=== PATIENT | female | born 1990 | race Caucasian/White ===

== ENCOUNTER 2020-10-26 09:29 | Outpatient (CLI) | payer BC ==
[2020-10-26] MEDS ORDERED: EPINEPHrine 1 MG/ML AMP ONE (10:45)
[2020-10-26] MEDS ORDERED: Gadobenate Dimeglumine 529 MG/1 ML (20ML VIAL) ONE (10:45)
[2020-10-26] MEDS ORDERED: Lidocaine 1% PF 10 ML AMP ONE (10:45)
[2020-10-26] MEDS ORDERED: Iopamidol 300 61% 50 ML VIAL FS ONE (10:45)
== END 2020-10-26 09:30 | disposition home or self-care (01) ==
LOC: RAD 09:29
PROVIDERS: ATTEND Orthopaedic Surgery
DX: M25.551 Pain in right hip (principal); S73.101A Unspecified sprain of right hip, initial encounter; M25.751 Osteophyte, right hip; R60.0 Localized edema; M51.45 Schmorl's nodes, thoracolumbar region; M43.16 Spondylolisthesis, lumbar region; M48.061 Spinal stenosis, lumbar region without neurogenic claudication; M48.07 Spinal stenosis, lumbosacral region
CPT/HCPCS: 27093; A9577; J0171; J2001; Q9967